=== PATIENT | female | born 1960 | race Caucasian/White ===

== ENCOUNTER → 2020-11-23 15:23 | Outpatient (CLI) | payer BC, SELFPAY ==
--- NOTE | ~2020-11-23 | MM_ITS ---
EXAMINATION: MM screening [facility] BI w yomi HISTORY: Screening TECHNIQUE: Craniocaudal and mediolateral oblique 3-D tomosynthesis images were obtained and synthetic 2-D images were generated. CAD analysis was submitted and interpreted. COMPARISON: Comparison to multiple prior studies sequentially, with oldest reviewed study dated 04/17. BREAST PARENCHYMAL COMPOSITION: There are scattered areas of fibroglandular density. FINDINGS: Stable asymmetries in the upper outer quadrant of the right breast dating back to 2011, lik nadja benign intramammary lymph nodes. There is no evidence of suspicious mass, calcification, or archi tectural distortion to suggest malignancy in either breast. There has been no suspicious interval remy nge. IMPRESSION: 1. No mammographic evidence of malignancy. 2. Recommend routine screening mammography in one year. BI-RADS Category 1: Negative Reviewed, dictated and finalized at location A.
== END ==
PROVIDERS: Visit Provider Obstetrics & Gynecology
DX: Z12.31 Encounter for screening mammogram for malignant neoplasm of breast (principal)
CPT/HCPCS: 77063; 77067

== ENCOUNTER → 2022-01-24 10:32 | Outpatient (CLI) | payer BC, SELFPAY ==
--- NOTE | ~2022-01-24 | XR_ITS ---
XR chest 2V DATE: 01/24/2022 10:51 INDICATION: Cough TECHNIQUE: 2 views COMPARISON: April 27, 2009 two-view chest FINDINGS: Normal heart size. No hilar or mediastinal enlargement. No pulmonary infiltrate or consolid ation, pleural effusion or pulmonary vascular congestion or pneumothorax. Degenerative spurring of the thoracic spine. IMPRESSION: No active cardiopulmonary disease Reviewed, dictated and finalized at location A.
== END ==
PROVIDERS: PCP Internal Medicine; Visit Provider Internal Medicine
DX: R05.9 Cough, unspecified (principal)
CPT/HCPCS: 71046

== ENCOUNTER → 2022-08-10 14:53 | Outpatient (CLI) | payer BC, SELFPAY ==
--- NOTE | ~2022-08-10 | MM_ITS ---
EXAMINATION: MM screening [facility] BI w yomi HISTORY: Screening mammogram, family history of breast cancer in her sister. TECHNIQUE: Craniocaudal and mediolateral oblique 3-D tomosynthesis images were obtained and synthetic 2-D images were generated. CAD analysis was submitted and interpreted. COMPARISON: 11/23/2020, 06/26/2016, 01/27/2015 BREAST PARENCHYMAL COMPOSITION: There are scattered areas of fibroglandular density. FINDINGS: RIGHT BREAST: There are possible masses in the middle and posterior thirds of the outer breast best a ppreciated 6 cm and 9 cm from the nipple on the craniocaudal view. LEFT BREAST: No suspicious mass, calcification, or architectural distortion are identified to suggest malignancy. There has been no suspicious interval change. IMPRESSION: 1. Possible right breast masses. 2. Additional mammographic views and possible breast ultrasound are recommended. BI-RADS Category 0: Incomplete: Needs additional imaging evaluation. Reviewed, dictated and finalized at location A. IMPRESSION: 1. Possible right breast masses. 2. Additional mammographic views and possible breast ultrasound are recommended . BI-RADS Category 0: Incomplete: Needs additional imaging evaluation.
== END ==
PROVIDERS: PCP Obstetrics & Gynecology; Visit Provider Obstetrics & Gynecology
DX: Z12.31 Encounter for screening mammogram for malignant neoplasm of breast (principal); R92.8 Other abnormal and inconclusive findings on diagnostic imaging of breast
CPT/HCPCS: 77063; 77067

== ENCOUNTER 2022-09-20 11:16 | Outpatient (CLI) | payer BC, SELFPAY ==
--- NOTE | ~2022-09-20 | MMUS_ITS ---
EXAMINATION: MM diagnostic michele RT w yomi, US breast RT limited HISTORY: Possible masses reported in the middle and posterior thirds of the outer breast 6 to 9 cm fr om the nipple on screening craniocaudal view of 08/10/2022 TECHNIQUE: Additional 3-D tomosynthesis images of the right breast were performed and synthetic 2-D i mages were generated. CAD analysis was submitted and interpreted. High resolution upper outer quadran t right breast ultrasound was performed. COMPARISON: Serial mammogram examinations dating back to 01/2015 FINDINGS: MAMMOGRAPHIC FINDINGS: There is chronic fibroglandular asymmetry in the upper outer quadrant of the right breast dating back to 01/2015. ULTRASOUND: No suspicious mass or shadowing is detected in the upper outer quadrant of the right breast. IMPRESSION: 1. Chronic fibroglandular asymmetry; no mammographic or sonographic evidence of malignancy 2. Routine annual mammographic screening is recommended BI-RADS Category 2: Benign finding(s). Reviewed, dictated and finalized at location A. IMPRESSION: 1. Chronic fibroglandular asymmetry; no mammographic or sonographic evidence of malignancy 2. Routine annual mammographic screening is recommended BI-RADS Category 2: Benign finding(s).
== END 2022-09-20 11:17 | disposition home or self-care (01) ==
LOC: ANHIMG 11:18
PROVIDERS: PCP Obstetrics & Gynecology; Visit Provider Obstetrics & Gynecology
DX: R92.8 Other abnormal and inconclusive findings on diagnostic imaging of breast (principal)
CPT/HCPCS: 76642; 77061; 77065; G0279

== ENCOUNTER 2023-03-09 09:49 | Outpatient (CLI) | payer BC, SELFPAY ==
--- NOTE | ~2023-03-09 | US_ITS ---
EXAMINATION: US abdomen limited DATE: 03/09/2023 11:26 INDICATION: Umbilical hernia without obstruction or gangrene TECHNIQUE: Abdominal ultrasound is performed in the area of clinical interest. COMPARISON: None available FINDINGS: Ultrasound targeted to the area of clinical interest demonstrates a small fat-containing um bilical hernia with an approximately 7 mm neck. There is slight increase in size of the hernia with V alsalva. No suspicious mass is identified. IMPRESSION: 1. Fat-containing umbilical hernia corresponding to the area of clinical concern. Reviewed, dictated and finalized at location B. NG DIRECTOR IMPRESSION: 1. Fat-containing umbilical hernia corresponding to the area of clinical concer n.
== END 2023-03-09 09:50 ==
PROVIDERS: PCP Surgery; Visit Provider Nurse Practitioner Family
DX: K42.9 Umbilical hernia without obstruction or gangrene (principal)
CPT/HCPCS: 76705

== ENCOUNTER 2023-04-02 14:20 | Outpatient (CLI) | payer BC, SELFPAY ==
--- NOTE | 2023-04-02 14:38 | ECG_ITS ---
Measurements Intervals [place] Rate: 71 P: 59 IN: 138 QRS: 7 QRSD: 140 T: 46 QT: 439 QTc: 480 Interpretive Statements SINUS RHYTHM LEFT BUNDLE BRANCH BLOCK BASELINE ARTIFACT- I, II, III, AVR, AVL, AVF, V4-V6 ABNORMAL ECG NO PREVIOUS ECG AVAILABLE FOR COMPARISON Electronically Signed On 04-02-2023 15:01:27 RESPIRATORY SERVICES MANAGER by Med Huynh D.O.
[2023-04-02 15:57] LABS: Anion Gap 8 mmol/L (8-16); Blood Urea Nitrogen 15 mg/dL (7-17); Calcium 9.9 mg/dL (8.4-10.2); Carbon Dioxide 29 mmol/L (22-30); Chloride 101 mmol/L (98-107); Estimated Glomerular Filt Rate 56; Glucose 96 mg/dL (65-110); Potassium 3.4 mmol/L (3.4-5.0); Sodium 138 mmol/L (137-145)
== END 2023-04-02 14:21 | disposition home or self-care (01) ==
LOC: ANHSURGERY 14:25
PROVIDERS: Anesthesiology; PCP Nurse Practitioner Family; Visit Provider Surgery
DX: E11.9 Type 2 diabetes mellitus without complications (principal); I10 Essential (primary) hypertension; Z01.818 Encounter for other preprocedural examination; I44.7 Left bundle-branch block, unspecified
CPT/HCPCS: 36415; 80048; 93005

== ENCOUNTER 2023-04-04 01:40 | Day surgery (SDC) | payer BC, SELFPAY ==
[2023-03-30 16:45] VITALS: BMI 28.9
--- NOTE | 2023-03-30 17:17 | PC.NURSE ---
Report to the Outpatient Waiting Room, entrance under the green pavilion located off [facility], at time _1100 on date __04/04/23 . Planned Procedure Time: _1300____. Time changes happen often and if your time is changed the preop area will call you the afternoon before. - You and your visitor will be asked to self-screen and do not enter if you have any COVID symptoms. - A mask is optional within the hospital at this time. Patients may have clear liquids (water, carbonated beverages, clear teas, apple juice) until 3 hours prior to surgery with a maximum of 20 ounces. - No food from midnight until time of surgery - Infants may have breast milk until 4 hours before surgery, infant formula 6 hours prior to surgery. - Children will be allowed to drink immediately following surgery. If applicable, please bring a bottle or sippy cup to assist with drinking. Juice, water, soda, and popsicles are readily available. For infants on formula, please bring formula the day of surgery. Pacifiers are allowed. Take the following medications with a SIP of water the morning of surgery: __Levothyroxine DO NOT STOP ANY OF YOUR OTHER PRESCRIPTION MEDICATIONS PRIOR TO SURGERY ?EXCEPT THE FOLLOWING Medications to discontinue per physician ____N/A Date to take last dose____N/A Please no make-up, nail austrian, hairspray, perfume, deodorant, or body powder the day of surgery. No jewelry (including any body piercings) or valuables the day of surgery, leave them at home. Please take a shower or bath the night before, or the morning of, surgery with an antibacterial soap. Wear comfortable, loose fitting clothing. Children are encouraged to wear pajamas. - Jewelry must be removed prior to entering the operating room. Rings and piercings that are not removed may be cut off. - The hospital will not accept responsibility for valuables. - Please leave all valuables, including medications, at home the day of surgery. If you are going home after surgery, a licensed star route mail driver must drive you home. - NO public transportation without another adult if you receive anesthesia. - We recommend that an adult stay with you for 24 hours following discharge. - We also recommend that you do not drive, make important decision, drink alcoholic beverages, or take any drugs that were not prescribed by your health care provider for at least 24 hours after your discharge time. For Pediatric surgeries, we recommend two adults accompany the child home. Follow any additional instructions given to you from your surgeon. If you or anyone in your household have experienced Covid symptoms in the past week, please notify your surgeon or the nurse liaison at the phone number below for possible testing. Telephone instructions given to __Joan Amaro and asked if any additional questions and then verbalized understanding. Patient advised to call surgeon office or pre surgery nurse liaison [phone] if any additional questions.
[2023-04-04] VITALS (7 sets, daily range): BP systolic 108–144; BP diastolic 56–69; PULSE 66–84; RESP 13–18; TEMP 36.6; O2SAT 97–100
--- NOTE | 2023-04-04 10:25 | WPDHPUPDATE1 ---
History and Physical Update Update Date/Time: 04/04/23 10:25 History and Physical has been reviewed, including an updated exam of the patient. There are NO changes in the patient's condition. Risks, benefits, and alternatives have been discussed and questions answered. Patient agrees to proceed with procedure.
[2023-04-04] MEDS: LACTATED RINGERS 1,000 ML 30 ML IV CONT ×2 (11:30→14:38)
[2023-04-04 11:48] LABS: Glucose Point of Care 114 mg/dl (65-105)
[2023-04-04] MEDS: KETOROLAC 15 MG/ML VIAL (*BKC) IV PUSH (11:53)
--- NOTE | 2023-04-04 12:38 | WPDANESEPPF ---
Anes - Initial Pre Proc Eval Procedure: Operation Date: 04/04/23 13:00 Proposed Procedures p Open Umbilical Hernia Repair Possible Mesh - Erica Henry MD Date/Time: 04/04/23 12:38 Surgeon: Erica Henry MD Pre Op Diagnosis: Umbilical Hernia Patient Data Age: 62 Gender: F Height: 1.57 m Weight: 71.8 kg Last Vital Signs Temp 36.6 C 04/04/23 11:30 Pulse 78 04/04/23 11:30 Resp 18 04/04/23 11:30 BP 138/64 04/04/23 11:30 Pulse Ox 99 04/04/23 11:30 O2 Del Method Room Air 04/04/23 11:30 Allergies Allergy/AdvReac Type Severity Reaction Status Date / Time bee venom protein (honey bee) Allergy Mild Other Verified 04/04/23 11:48 Home Medications Medication Instructions Recorded Confirmed Type famotidine 20 mg tablet (Pepcid) 20 mg PO DAILY PRN Indigestion 10/22/19 04/04/23 History blood sugar diagnostic (OneTouch #100 ea 09/17/20 04/04/23 Rx Verio test strips) blood-glucose meter (OneTouch #1 ea 09/17/20 04/04/23 Rx Verio Meter) lancets 30 gauge #100 ea 09/17/20 04/04/23 Rx levothyroxine 100 mcg tablet 100 mcg PO DAILY #90 tabs 11/15/22 04/04/23 Rx metformin 500 mg tablet 500 mg PO BID #180 tabs 12/15/22 04/04/23 Rx losartan 100 1 tablet PO DAILY #90 tabs 01/15/23 04/04/23 Rx mg-hydrochlorothiazide 12.5 mg tablet clorazepate dipotassium 3.75 mg 3.75 mg PO BID PRN anxiety 1 month 03/08/23 04/04/23 Rx tablet #60 tabs atorvastatin 20 mg tablet 20 mg PO HS 03/30/23 04/04/23 History Laboratory Tests 04/04/23 11:34 POC Capillary Glucose 114 H mg/dl (65-105) Patient hx anesthesia problems: none Family hx anesthesia problems: post op nausea/vomiting Results Review: All pre-operative results and documents have been reviewed as part of the pre-operative evaluation. [facility] Past Medical History Medical History Hyperglycemia Statin myopathy Thyroid disease Surgical History Surgical History Previous section Family History Family History Mother Family history of coronary artery disease, Onset Age: 49 Sibling Family history of hypercholesterolemia Hypertension Family history of malignant neoplasm Family history of malignant neoplasm of breast in first degree relative Father Family history of lung cancer Other Diabetes mellitus Family history of malignant neoplasm of breast Social History Social History Years smoked: 10 Smoking status: Former smoker Tobacco type: cigarettes Second hand tobacco smoke exposure: No Smoking end date: 03/26/91 Alcohol intake: never Substance use: never Last use: 1991 Lack of Transportation: No Lack of Food: Never True Current Housing: I Have Housing Concerned About Future Housing: No Difficulty Paying Gas/Electric Bills: No Difficulty Paying for Meds: No Currently Unemployed: No Education: High School Diploma/GED Difficulty w/ Childcare or Family Care: No Living arrangements: with family Spiritual care concerns: No Anes - Eval Final PreProcedure Day of Procedure 04/04/23 12:38 Patient weight: overweight Heart: regular rate and rhythm Lungs: clear to auscultation Airway: Mallampati scale class II Neurological: alert and oriented Last oral intake: >/= 8 hours ASA classification: III Emergent: no Anesthetic plan: proceed Anesthesia type and monitoring: general ETT and standard monitoring Results Review: All pre-operative results and documents have been reviewed as part of the pre-operative evaluation. Informed Consent: The patient's anesthetic plan and its attendant risks and benefits were discussed with the patient/family/POA. Questions were solicited and answers provided to the satisfaction of the patien
[2023-04-04] MEDS: BUPIVACAINE/EPINEPHRINE 0.5% 50 ML VIAL 30 ML INFILTRATE (13:15)
[2023-04-04] MEDS: ceFAZolin 2 GM/D5W 50 ML 2 GM/50 ML BAG IVPB (13:15)
--- NOTE | 2023-04-04 13:58 | W.PM.PROC2 ---
Procedure Note - Detailed Date of Procedure 04/04/23 Pre-op Diagnosis Umbilical Hernia defect measuring 3 cm Post-op Diagnosis Same Procedure Performed repair of umbilical hernia, approximately 3 cm defect, with mesh Surgeon Erica Henry MD Anesthesia General Indications 62 y/o F c enlarging umbilical hernia Findings umbilical hernia c 3 cm defect Description of Procedure The patient was taken to the operating room placed in the supine position. After adequate induction of general anesthesia, the patient was prepped and draped in the normal sterile fashion. A time-out was then done to verify the patient's identity, as well as the procedure being performed. I began by localizing the area around the umbilicus. I then made a curvilinear incision in the infraumbilical fold. This was taken down to level fascia. I then was able to bluntly dissect around the umbilicus. I then carefully dissected the umbilicus off the underlying fascia. I then noted a 3 cm defect with incarcerated preperitoneal fat. I was able to mobilize the incarcerated tissue and reduce it back into the abdominal cavity. This left an approximately 3 cm defect. I then placed a 4.6 cm round piece of ventralex mesh in the underlay position. This was noted to have good, wide local coverage of the defect. I then closed this defect primarily with interrupted 0 Ethibond suture over the underlay mesh repair. I then reapproximated the umbilicus to the fascia with a 3 0 Vicryl U-stitch. The subcutaneous tissue was then closed with 3 0 Vicryl suture. The skin was closed with 4 0 Monocryl subcuticular suture. Dermabond was then placed on the wound. The patient tolerated the procedure well was extubated in the operating room postop. She will be transferred to the recovery room in stable condition. Implants 4.6 cm ventralex mesh in underlay position Estimated Blood Loss 5 Drains No Packing No Pathology None sent Complications No immediate complications Condition Stable Disposition PACU [facility] Billing Surgery - Charge Forward: Surgery Billing
[2023-04-04 14:16] LABS: Glucose Point of Care 108 mg/dl (65-105)
--- NOTE | 2023-04-04 15:40 | SUR.PHASEII ---
1525 AWAITING ABDOMINAL BINDER FROM TROUT.
--- NOTE | 2023-04-04 15:50 | SUR.PHASEII ---
ABDOMINAL BINDER PLACED ON PATIENT.
== END 2023-04-04 15:51 | disposition home or self-care (01) ==
PROVIDERS: PCP Nurse Practitioner Family; Visit Provider Surgery
PROC: (CPT 49593; principal; 2023-04-04 13:00)
DX: K42.9 Umbilical hernia without obstruction or gangrene (principal); E07.9 Disorder of thyroid, unspecified; Z87.891 Personal history of nicotine dependence; Z79.84 Long term (current) use of oral hypoglycemic drugs
CPT/HCPCS: 49593; 36415; 80048; 82948; 93005; C1781; J0690; J1100; J1885; J2250; J2405; J2704; J3010; J7120

== ENCOUNTER 2023-08-13 13:52 | Outpatient (CLI) | payer BC, SELFPAY ==
--- NOTE | ~2023-08-13 | XR_ITS ---
XR knee RT min 4V DATE: 08/13/2023 14:18 INDICATION: Right knee pain TECHNIQUE: AP, PA, lateral and sunrise views COMPARISON: None FINDINGS: There is a superior pole patellar enthesopathy at the quadriceps tendon insertion. There is mild. There is spurring at the patellofemoral joint. There is moderately prominent loss of medial compartment joint space height. Lateral compartment join t space is well preserved. No fracture or dislocation or joint effusion. No radiopaque intra-articular loose body or chondrocalc inosis. No periosteal reaction or bone destruction. IMPRESSION: Osteoarthritis, greatest involvement at the medial compartment Reviewed, dictated and finalized at location B.
== END 2023-08-13 13:53 ==
PROVIDERS: PCP Nurse Practitioner Family; Visit Provider Nurse Practitioner Family
DX: M17.11 Unilateral primary osteoarthritis, right knee (principal)
CPT/HCPCS: 73564

== ENCOUNTER 2023-09-24 13:19 | Outpatient (CLI) | payer BC, SELFPAY ==
--- NOTE | ~2023-09-24 | MM_ITS ---
EXAMINATION: MM screening [facility] BI w yomi HISTORY: Screening mammogram, family history of breast cancer in her sister. TECHNIQUE: Craniocaudal and mediolateral oblique 3-D tomosynthesis images were obtained and synthetic 2-D images were generated. CAD analysis was submitted and interpreted. COMPARISON: 09/12/2022, 08/10/2022, 11/23/2020 BREAST PARENCHYMAL COMPOSITION:Not Dense. There are scattered areas of fibroglandular density. FINDINGS: No suspicious mass, calcification, or architectural distortion are identified in either pam ast to suggest malignancy. There has been no suspicious interval change. IMPRESSION: No mammographic evidence of malignancy. Recommend routine screening mammography in one year. BI-RADS Category 1: Negative Reviewed, dictated and finalized at location .
== END 2023-09-24 13:20 | disposition home or self-care (01) ==
LOC: ANHIMG 13:22
PROVIDERS: PCP Nurse Practitioner Family; Visit Provider Obstetrics & Gynecology
DX: Z12.31 Encounter for screening mammogram for malignant neoplasm of breast (principal)
CPT/HCPCS: 77063; 77067

== ENCOUNTER 2024-09-25 14:10 | Outpatient (CLI) | payer BC, SELFPAY ==
--- NOTE | ~2024-09-25 | MM_ITS ---
EXAMINATION: MM screening michele BI w yomi HISTORY: Screening mammogram, family history of breast cancer in her sister. TECHNIQUE: Craniocaudal and mediolateral oblique 3-D tomosynthesis images were obtained and synthetic 2-D images were generated. CAD analysis was submitted and interpreted. COMPARISON: 09/24/2023, 08/10/2022, 11/23/2020 BREAST PARENCHYMAL COMPOSITION:Not Dense. The breasts are almost entirely fatty FINDINGS: No suspicious mass, calcification, or architectural distortion are identified in either pam ast to suggest malignancy. There has been no suspicious interval change. IMPRESSION: No mammographic evidence of malignancy. Recommend routine screening mammography in one year. BI-RADS Category 1: Negative Reviewed, dictated and finalized at location .
--- OUTSIDE RECORDS SUMMARY | 2024-09-25 14:15 | XMS_ITS | Referral Summary ---
Author Organization [facility] Address [address] [place] [address] Care Team Providers Care Net C Developer Name Role Phone Star Richards MD Primary Care Provider [phone] Crow Tidwell MD Unavailable [phone] Allergies No known active allergies Medications clorazepate (TRANXENE) 3.75 mg tablet Take 3.75 mg by mouth. 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 Active losartan-hydroC HLOROthiazide (HYZAAR) 100-12.5 mg per tablet TK 1 T PO QD 1 08/20/2018 Active metFORMIN (GLUCOPHAGE) 500 mg tablet Take 500 mg by mouth 2 (two) times a day 05/03/2020 Active Active Problems Problem Noted Date Diagnosed Date Anxiety 04/30/2018 Vaginal atrophy 04/30/2018 Dysplasia of cervix, low grade (LEOLA 1) 9 Social History Tobacco Use Types Packs/Day Years Used Date Smoking Tobacco: Former Cigarettes Q uit: 1991 Smokeless Tobacco: Never Alcohol Use Standard Drinks/Week Comments Yes 0 (1 standard drink = 0.6 oz pur e alcohol) Personal Safety Answer Date Recorded Getting School Help Needed Not on file 06/07 Comments No Sex and Gender Information Value Date Recorded Sex Assigned at Not on file 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 Gender Identity Not on file Sexual Orientation Not on file Last Filed Vital Signs Vital Sign Reading Time Taken Comments Blood Pressure 144/84 07/05/2020 3:54 PM CDT Pulse 92 07/05/2020 3:54 PM CDT Temperature 36.6 C (97.9 F) 07/05/2020 3:54 PM CDT Respiratory Rate 16 07/05/2020 3:54 PM CDT Oxygen Saturation 99% 07/05/2020 3:54 PM CDT Inhaled Oxygen Concentration - - Weight 78.5 kg (173 lb) 07/05/2020 3:54 PM CDT Height 157.5 cm (5' 2.01) 07/05/2020 3:54 PM CD T Body Mass Index 31.63 07/05/2020 3:54 PM CDT Plan of Treatment Not on file Insurance [employer] ACCESS Mobile Armor CHOICE ANTH ACCESS Care Teams Net C Developer Relationship Specialty Start Date End Date Star Richards MD [address] [facility] [address] [place] [address] PCP - General Internal Medicine 10/09/18 Crow Tidwell MD [address] [facility] [address] [place] [address] Referring Physician Obstetrics and Gynecology 10/28/18
--- OUTSIDE RECORDS SUMMARY | 2024-09-25 14:15 | XMS_ITS | Clinical Summary ---
Author Organization [facility] Address [address] [place] [address] Care Team Providers Care Personal Care Service Provider Name Role Phone Star Richards MD Primary Care Provider [phone] Crow Tidwell MD Unavailable [phone] Allergies No known active allergies Medications clorazepate (TRANXENE) 3.75 mg tablet Take 3.75 mg by mouth. 0 04/02/2018 Active levothyroxine (SYNTHROID, LEVOTHROID) 100 mcg tablet Take 100 mcg by mouth technician inventory specialist before breakfast. Active losartan-hydroC HLOROthiazide (HYZAAR) 100-12.5 mg per tablet TK 1 T PO QD 1 08/20/2018 Active metFORMIN (GLUCOPHAGE) 500 mg tablet Take 500 mg by mouth 2 (two) times a day 05/03/2020 Active Active Problems Problem Noted Date Diagnosed Date Anxiety 04/30/2018 Vaginal atrophy 04/30/2018 Dysplasia of cervix, low grade (LEOLA 1) 9 Surgical History Surgery Date Site/Laterality Comments SECTION HYSTERECTOMY partial 2008 DILATION AND CURETTAGE OF UTERUS 03/26/1979 - 03/25/1980 Medical History Medical History Date Comments Hypertension Thyroid disease Family History Medical History Relation Name Comments Cancer Brother Lung cancer Father Heart attack Mother Breast cancer Sister 1 Relation Name Status Comments Brother Father Mother Sister 1 Sister 2 Alive Social History Tobacco Use Types Packs/Day Years [...] on file 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 [address] [place] [address] PCP - General Internal Medicine 10/09/18 Crow Tidwell MD [address] [facility] [address] [place] [address] Referring Physician Obstetrics and Gynecology 10/28/18
== END 2024-09-25 14:11 | disposition home or self-care (01) ==
LOC: ANHIMG 14:14
PROVIDERS: PCP Family Medicine; Visit Provider Obstetrics & Gynecology
DX: Z12.31 Encounter for screening mammogram for malignant neoplasm of breast (principal); Z80.3 Family history of malignant neoplasm of breast
CPT/HCPCS: 77063; 77067